=== PATIENT | female | born 1985 | race Caucasian/White ===

== ENCOUNTER 2016-07-04 11:27 | Emergency (ER) | payer BC ==
[~2016-07-04] VITALS: Ht 172.7 cm; Wt 65.3 kg
[2016-07-04 11:33] VITALS: BP 158/106; PULSE 80; RESP 16; TEMP 97.6; O2SAT 100
--- NOTE | 2016-07-04 13:40 | NUR ---
BROUGHT BACK TO BED #8 AND WILL ASSUME CARE
--- NOTE | 2016-07-04 13:45 | NUR ---
DR RUSSELL AT BEDSIDE FOR EVALUATION. PT STATES PAIN TO CALFS HAVE SUBSIDED.
[2016-07-04 14:31] VITALS: BP 142/81; PULSE 81; RESP 17; TEMP 97.2; O2SAT 99
--- NOTE | 2016-07-04 14:33 | NUR ---
Patient given written and verbal discharge instructions and verbalizes understanding. ER MD discussed with patient the results and treatment provided. Given copies of tests performed in ER. Patient in stable condition. ID arm band removed. Rx of NONE given. Patient educated on pain management and to follow up with PMD. Pain Scale 0/10. Opportunity for questions provided and answered.
== END 2016-07-04 14:31 | disposition home or self-care (01) ==
LOC: SED 11:27
DX: M79.662 Pain in left lower leg (principal); M79.661 Pain in right lower leg; R25.2 Cramp and spasm
CPT/HCPCS: 93005; 93970; 99284